=== PATIENT | female | born 1995 | race Caucasian/White ===

== ENCOUNTER 2017-10-17 14:16 | Emergency (ER) | payer OTHER ==
[2017-10-17 17:51] LABS: ADD MAN DIFF? NO
[2017-10-17 17:56] LABS: BASOPHILS % 0.3 % (0.0-2.0); EOSINOPHILS % 0.3 % (0.0-7.0); HEMOGLOBIN 14.6 g/dl (12.0-16.0); LYMPHOCYTES # 2.8 10^3/ul (0.8-2.9); LYMPHOCYTES % 31.3 % (15.0-51.0); MEAN CORPUSCULAR HEMOGLOBIN 29.3 pg (29.0-33.0); MEAN CORPUSCULAR VOLUME 86.2 fl (82.0-101.0); MEAN PLATELET VOLUME 9.6 fl (7.4-10.4); MONOCYTE # 0.6 10^3/ul (0.3-0.9); MONOCYTES % 6.5 % (0.0-11.0); NEUTROPHIL # 5.4 10^3/ul (1.6-7.5); NEUTROPHILS % 61.3 % (39.0-77.0); PLATELET COUNT 379 10^3/UL (140-415); RED BLOOD COUNT 4.99 10^6/ul (4.20-5.40); RED CELL DISTRIBUTION WIDTH 13.1 % (11.5-14.5)
[2017-10-17 17:56] LABS: WHITE BLOOD COUNT 8.9 10^3/ul (4.8-10.8)
[2017-10-17] MEDS: METOCLOPRAMIDE 10 MG INJ IV (18:05)
[2017-10-17] MEDS: DIPHENHYDRAMINE 50 MG INJ IV (18:05)
[2017-10-17] MEDS: SOD CHLORIDE 0.9% 1,000 ML IV (18:06)
[2017-10-17 18:09] LABS: INR 0.95; PROTIME 12.8 Sec (11.9-14.9)
[2017-10-17 18:10] LABS: PARTIAL THROMBOPLASTIN TIME 30.1 Sec (25.0-35.0)
[2017-10-17 19:07] LABS: ADD UMIC YES; UR ASCORBIC ACID NEGATIVE (NEGATIVE); UR BILIRUBIN (Dip) NEGATIVE (NEGATIVE); UR BLOOD (Dip) 1+ mg/dL (NEGATIVE); UR CLARITY CLEAR (CLEAR); UR COLOR STRAW (YELLOW); UR GLUCOSE (Dip) NEGATIVE (NEGATIVE); UR KETONES (Dip) NEGATIVE (NEGATIVE); UR LEUKOCYTE ESTERASE (Dip) NEGATIVE Leu/ul (NEGATIVE); UR NITRITE (Dip) NEGATIVE (NEGATIVE); UR RBC 1 /HPF (0-5); UR SPECIFIC GRAVITY (Dip) 1.005 (1.003-1.030); UR TOTAL PROTEIN (Dip) NEGATIVE (NEGATIVE); UR UROBILINOGEN (Dip) NEGATIVE (NEGATIVE); UR WBC 0 /HPF (0-5)
== END 2017-10-17 20:13 | disposition home or self-care (01) ==
LOC: FTE 14:16
DX: H53.2 Diplopia (principal)
CPT/HCPCS: 36415; 70450; 81001; 84703; 85025; 85610; 85730; 96374; 96375; 99285-25

== ENCOUNTER 2017-10-20 10:24 | Inpatient (IN) | payer OTHER ==
[2017-10-20] MEDS ORDERED: ONDANSETRON 4 MG INJ IV (12:30)
[2017-10-20 12:33] LABS: ADD MAN DIFF? NO
[2017-10-20] MEDS: SOD CHLORIDE 0.9% 1,000 ML IV (12:34)
[2017-10-20 12:35] LABS: BASOPHILS % 0.2 % (0.0-2.0); HEMATOCRIT 41.3 % (37.0-47.0); HEMOGLOBIN 14.2 g/dl (12.0-16.0); LYMPHOCYTES # 1.7 10^3/ul (0.8-2.9); LYMPHOCYTES % 17.5 % (15.0-51.0); MEAN CORPUSCULAR HEMOGLOBIN 29.3 pg (29.0-33.0); MEAN CORPUSCULAR HGB CONC 34.4 g/dl (32.0-37.0); MEAN CORPUSCULAR VOLUME 85.2 fl (82.0-101.0); MEAN PLATELET VOLUME 9.3 fl (7.4-10.4); MONOCYTE # 0.4 10^3/ul (0.3-0.9); NEUTROPHIL # 7.5 10^3/ul (1.6-7.5); PLATELET COUNT 366 10^3/UL (140-415); RED BLOOD COUNT 4.85 10^6/ul (4.20-5.40); RED CELL DISTRIBUTION WIDTH 12.9 % (11.5-14.5)
[2017-10-20 12:35] LABS: WHITE BLOOD COUNT 9.6 10^3/ul (4.8-10.8)
[2017-10-20 12:36] LABS: ADD UMIC NO; UR ASCORBIC ACID NEGATIVE (NEGATIVE); UR BILIRUBIN (Dip) NEGATIVE (NEGATIVE); UR BLOOD (Dip) NEGATIVE (NEGATIVE); UR CLARITY CLEAR (CLEAR); UR COLOR COLORLESS (YELLOW); UR GLUCOSE (Dip) NEGATIVE (NEGATIVE); UR KETONES (Dip) NEGATIVE (NEGATIVE); UR LEUKOCYTE ESTERASE (Dip) NEGATIVE Leu/ul (NEGATIVE); UR NITRITE (Dip) NEGATIVE (NEGATIVE); UR SPECIFIC GRAVITY (Dip) 1.003 (1.003-1.030); UR TOTAL PROTEIN (Dip) NEGATIVE (NEGATIVE); UR UROBILINOGEN (Dip) NEGATIVE (NEGATIVE)
[2017-10-20 12:53] LABS: HEMOGLOBIN A1C 5.2 % (0-5.9)
[2017-10-20 12:53] LABS: ANION GAP 15 (8-16); BLOOD UREA NITROGEN 7 mg/dl (7-20); CALCIUM 9.6 mg/dl (8.4-10.2); CARBON DIOXIDE 26 mmol/L (21-31); CHLORIDE 106 mmol/L (97-110); CREATININE 0.69 mg/dl (0.44-1.00); GLUCOSE 107 mg/dl (70-220); POTASSIUM 4.5 mmol/L (3.5-5.1); SODIUM 142 mmol/L (135-144)
[2017-10-20 12:58] LABS: AMPHETAMINE/METHAMPHETAMINE Negative (NEGATIVE); BARBITURATES Negative (NEGATIVE); BENZODIAZEPINES Negative (NEGATIVE); CANNABINOIDS Negative (NEGATIVE); COCAINE Negative (NEGATIVE); OPIATES Negative (NEGATIVE)
[2017-10-20] MEDS ORDERED: hydrALAzine 20 MG INJ IV (13:00)
[2017-10-20 13:05] LABS: INR 0.93; PROTIME 12.5 Sec (11.9-14.9)
[2017-10-20 13:06] LABS: PARTIAL THROMBOPLASTIN TIME 28.1 Sec (25.0-35.0)
[2017-10-20 13:11] LABS: TROPONIN-I < 0.012 ng/ml (0.00-0.12)
[2017-10-20] MEDS: METHYLPRED. NA SUCC 1,000 MG in DEXTROSE 5% 50 ML IVPB (13:26)
[2017-10-20] MEDS: ACETAMINOPHEN 325 MG TAB PO (14:05)
[2017-10-20] MEDS: PANTOPRAZOLE 40 MG INJ IV (18:26)
[2017-10-20] MEDS ORDERED: INFLUENZA VIRUS VACCINE 0.5 ML (DISPENSING) IM* (19:00)
[2017-10-21 12:02] LABS: ADD MAN DIFF? NO
[2017-10-21 12:11] LABS: WHITE BLOOD COUNT 14.7 10^3/ul (4.8-10.8)
[2017-10-21 12:11] LABS: BASOPHILS % 0.1 % (0.0-2.0); HEMATOCRIT 39.3 % (37.0-47.0); HEMOGLOBIN 13.5 g/dl (12.0-16.0); LYMPHOCYTES # 1.6 10^3/ul (0.8-2.9); LYMPHOCYTES % 10.8 % (15.0-51.0); MEAN CORPUSCULAR HEMOGLOBIN 29.4 pg (29.0-33.0); MEAN CORPUSCULAR HGB CONC 34.4 g/dl (32.0-37.0); MEAN CORPUSCULAR VOLUME 85.6 fl (82.0-101.0); MEAN PLATELET VOLUME 9.6 fl (7.4-10.4); MONOCYTE # 0.7 10^3/ul (0.3-0.9); MONOCYTES % 4.4 % (0.0-11.0); NEUTROPHIL # 12.4 10^3/ul (1.6-7.5); NEUTROPHILS % 84.2 % (39.0-77.0); PLATELET COUNT 387 10^3/UL (140-415); RED BLOOD COUNT 4.59 10^6/ul (4.20-5.40); RED CELL DISTRIBUTION WIDTH 13.2 % (11.5-14.5)
[2017-10-21 12:35] LABS: MAGNESIUM 2.1 mg/dl (1.7-2.5)
[2017-10-21 12:35] LABS: PHOSPHORUS 2.9 mg/dl (2.5-4.9)
[2017-10-21 12:36] LABS: ANION GAP 18 (8-16); BLOOD UREA NITROGEN 11 mg/dl (7-20); CALCIUM 9.8 mg/dl (8.4-10.2); CARBON DIOXIDE 24 mmol/L (21-31); CHLORIDE 107 mmol/L (97-110); CREATININE 0.61 mg/dl (0.44-1.00); GLUCOSE 108 mg/dl (70-220); POTASSIUM 4.6 mmol/L (3.5-5.1); SODIUM 144 mmol/L (135-144)
[2017-10-21 12:40] LABS: HEMOGLOBIN A1C 5.2 % (0-5.9)
[2017-10-21 13:50] LABS: CHOLESTEROL 186 mg/dl (100-200)
[2017-10-21 13:50] LABS: CHOL/HDL RATIO 4.6 RATIO; HDL CHOLESTEROL 40 mg/dl (33-83); LDL CHOLESTEROL,CALCULATED 128 mg/dl; TRIGLYCERIDES 88 mg/dl (0-149)
[2017-10-21] MEDS ORDERED: MAGNESIUM HYDROXIDE 30ML CUP PO (14:00)
[2017-10-21] MEDS ORDERED: HYDROCODONE/APAP (5/325) TAB PO (14:00)
[2017-10-21] MEDS ORDERED: BISACODYL (EC) 5 MG TAB PO (14:00)
[2017-10-21] MEDS ORDERED: DOCUSATE SODIUM 100 MG CAP PO (14:00)
[2017-10-21] MEDS ORDERED: morphine 2 MG INJ IV (14:00)
[2017-10-21] MEDS ORDERED: NACL 0.9% 3 ML SYG IV (14:00)
[2017-10-21] MEDS ORDERED: DEXTROSE 50% 50 ML SYRINGE IV ×2 (22:00)
[2017-10-21] MEDS ORDERED: GLUCAGON 1 MG INJ IM (22:00)
[2017-10-21] MEDS ORDERED: GLUCOSE GEL 15 GRAM TUBE BUCCAL (22:00)
[2017-10-21] MEDS ORDERED: GLUCOSE GEL 15 GRAM TUBE PO ×2 (22:00)
[2017-10-22 05:56] LABS: ADD MAN DIFF? NO
[2017-10-22 06:02] LABS: WHITE BLOOD COUNT 11.7 10^3/ul (4.8-10.8)
[2017-10-22 06:02] LABS: BASOPHILS % 0.2 % (0.0-2.0); EOSINOPHILS % 0.1 % (0.0-7.0); HEMATOCRIT 38.3 % (37.0-47.0); HEMOGLOBIN 13.3 g/dl (12.0-16.0); LYMPHOCYTES # 3.6 10^3/ul (0.8-2.9); MEAN CORPUSCULAR HEMOGLOBIN 29.8 pg (29.0-33.0); MEAN CORPUSCULAR HGB CONC 34.7 g/dl (32.0-37.0); MEAN CORPUSCULAR VOLUME 85.7 fl (82.0-101.0); MEAN PLATELET VOLUME 9.8 fl (7.4-10.4); MONOCYTE # 0.7 10^3/ul (0.3-0.9); MONOCYTES % 5.7 % (0.0-11.0); NEUTROPHIL # 7.3 10^3/ul (1.6-7.5); NEUTROPHILS % 62.7 % (39.0-77.0); PLATELET COUNT 343 10^3/UL (140-415); RED BLOOD COUNT 4.47 10^6/ul (4.20-5.40); RED CELL DISTRIBUTION WIDTH 13.2 % (11.5-14.5)
[2017-10-22 06:16] LABS: INR 0.97
[2017-10-22 06:36] LABS: ALANINE AMINOTRANSFERASE 27 IU/L (13-69); ALBUMIN 4.1 g/dl (3.3-4.9); ALBUMIN/GLOBULIN RATIO 1.07; ALKALINE PHOSPHATASE 75 IU/L (42-121); ANION GAP 13 (8-16); ASPARTATE AMINO TRANSFERASE 19 IU/L (15-46); BLOOD UREA NITROGEN 14 mg/dl (7-20); CALCIUM 9.3 mg/dl (8.4-10.2); CARBON DIOXIDE 26 mmol/L (21-31); CHLORIDE 105 mmol/L (97-110); CREATININE 0.73 mg/dl (0.44-1.00); GLUCOSE 113 mg/dl (70-220); PHOSPHORUS 3.4 mg/dl (2.5-4.9); POTASSIUM 3.9 mmol/L (3.5-5.1); SODIUM 140 mmol/L (135-144); TOTAL PROTEIN 7.9 g/dl (6.1-8.1)
[2017-10-22 07:37] LABS: FOLATE 7.1 ng/ml (2.8-20.0)
[2017-10-22 07:44] LABS: HEMOGLOBIN A1C 5.2 % (0-5.9)
[2017-10-22] MEDS: INSULIN ASPART [NOVOLOG] 3 ML PEN SC ×4 (08:00→20:33)
[2017-10-22] MEDS: METHYLPRED. NA SUCC 1,000 MG in DEXTROSE 5% 50 ML IVPB (08:13)
[2017-10-22] MEDS: FAMOTIDINE 20 MG TAB PO (08:15)
[2017-10-22] MEDS: ENOXAPARIN 30 MG/0.3 ML SYG SC (08:29)
[2017-10-22] MEDS: LIDOCAINE 1% (MDV) 20 ML INJ ×3 (13:58→14:57)
[2017-10-22] MEDS: ACETAMINOPHEN 325 MG TAB PO (16:04)
[2017-10-22 16:45] LABS: RAPID PLASMA REAGIN NONREACTIVE (NR)
[2017-10-22 17:17] LABS: GLUCOSE,CSF 61 mg/dl (50-80)
[2017-10-22 17:17] LABS: TOTAL PROTEIN,CSF 31 mg/dl (12-60)
[2017-10-22 17:48] LABS: CSF RBC 0 /uL (0-0); CSF WBC 4 /cmm (0-10)
[2017-10-22 18:51] LABS: CSF COLOR COLORLESS
[2017-10-22 18:51] LABS: CSF CLARITY CLEAR
[2017-10-22 18:52] LABS: CSF VOLUME 8.6 ml; CSF#TUBE COUNT TUBE#1; CSF#TUBES REC'D 4
[2017-10-23 06:03] LABS: ADD MAN DIFF? NO
[2017-10-23 06:09] LABS: WHITE BLOOD COUNT 15.6 10^3/ul (4.8-10.8)
[2017-10-23 06:09] LABS: BASOPHILS % 0.1 % (0.0-2.0); HEMATOCRIT 39.3 % (37.0-47.0); HEMOGLOBIN 13.6 g/dl (12.0-16.0); LYMPHOCYTES # 1.9 10^3/ul (0.8-2.9); LYMPHOCYTES % 12.4 % (15.0-51.0); MEAN CORPUSCULAR HEMOGLOBIN 29.7 pg (29.0-33.0); MEAN CORPUSCULAR HGB CONC 34.6 g/dl (32.0-37.0); MEAN CORPUSCULAR VOLUME 85.8 fl (82.0-101.0); MEAN PLATELET VOLUME 9.7 fl (7.4-10.4); MONOCYTE # 0.8 10^3/ul (0.3-0.9); MONOCYTES % 5.1 % (0.0-11.0); NEUTROPHIL # 12.8 10^3/ul (1.6-7.5); PLATELET COUNT 380 10^3/UL (140-415); RED BLOOD COUNT 4.58 10^6/ul (4.20-5.40); RED CELL DISTRIBUTION WIDTH 13.1 % (11.5-14.5)
[2017-10-23 07:20] LABS: ANION GAP 16 (8-16); BLOOD UREA NITROGEN 11 mg/dl (7-20); CALCIUM 9.1 mg/dl (8.4-10.2); CARBON DIOXIDE 24 mmol/L (21-31); CHLORIDE 106 mmol/L (97-110); CREATININE 0.58 mg/dl (0.44-1.00); GLUCOSE 126 mg/dl (70-220); POTASSIUM 4.1 mmol/L (3.5-5.1); SODIUM 142 mmol/L (135-144)
[2017-10-23] MEDS: INSULIN ASPART [NOVOLOG] 3 ML PEN SC ×4 (08:00→21:00)
[2017-10-23] MEDS: FAMOTIDINE 20 MG TAB PO (08:33)
[2017-10-23] MEDS: ENOXAPARIN 30 MG/0.3 ML SYG SC ×2 (08:34→08:40)
[2017-10-23] MEDS: METHYLPRED. NA SUCC 1,000 MG in DEXTROSE 5% 50 ML IVPB (08:34)
[2017-10-24] MEDS: INSULIN ASPART [NOVOLOG] 3 ML PEN SC ×4 (08:00→20:45)
[2017-10-24] MEDS: FAMOTIDINE 20 MG TAB PO (08:31)
[2017-10-24] MEDS: ENOXAPARIN 30 MG/0.3 ML SYG SC (08:33)
[2017-10-24] MEDS: METHYLPRED. NA SUCC 1,000 MG in DEXTROSE 5% 50 ML IVPB (17:35)
[2017-10-24] MEDS: ONDANSETRON 4 MG INJ IV (19:32)
[2017-10-25 05:50] LABS: ADD MAN DIFF? NO
[2017-10-25 05:58] LABS: BASOPHILS % 0.1 % (0.0-2.0); HEMATOCRIT 40.3 % (37.0-47.0); HEMOGLOBIN 13.7 g/dl (12.0-16.0); LYMPHOCYTES # 1.8 10^3/ul (0.8-2.9); LYMPHOCYTES % 15.2 % (15.0-51.0); MEAN CORPUSCULAR HEMOGLOBIN 29.3 pg (29.0-33.0); MEAN CORPUSCULAR VOLUME 86.1 fl (82.0-101.0); MEAN PLATELET VOLUME 9.8 fl (7.4-10.4); MONOCYTE # 0.1 10^3/ul (0.3-0.9); MONOCYTES % 0.7 % (0.0-11.0); NEUTROPHILS % 83.2 % (39.0-77.0); PLATELET COUNT 372 10^3/UL (140-415); RED BLOOD COUNT 4.68 10^6/ul (4.20-5.40); RED CELL DISTRIBUTION WIDTH 12.9 % (11.5-14.5)
[2017-10-25 06:12] LABS: ALANINE AMINOTRANSFERASE 30 IU/L (13-69); ALBUMIN 4.1 g/dl (3.3-4.9); ALKALINE PHOSPHATASE 70 IU/L (42-121); ANION GAP 15 (8-16); ASPARTATE AMINO TRANSFERASE 11 IU/L (15-46); BLOOD UREA NITROGEN 12 mg/dl (7-20); CALCIUM 8.9 mg/dl (8.4-10.2); CARBON DIOXIDE 26 mmol/L (21-31); CHLORIDE 104 mmol/L (97-110); GLUCOSE 139 mg/dl (70-220); POTASSIUM 4.5 mmol/L (3.5-5.1); SODIUM 140 mmol/L (135-144)
[2017-10-25 06:15] LABS: BILIRUBIN,INDIRECT 0.2 mg/dl (0-1.1); BILIRUBIN,TOTAL 0.2 mg/dl (0.2-1.3); TOTAL PROTEIN 7.3 g/dl (6.1-8.1)
[2017-10-25 06:17] LABS: ALBUMIN/GLOBULIN RATIO 1.28
[2017-10-25 06:28] LABS: MAGNESIUM 2.1 mg/dl (1.7-2.5)
[2017-10-25 06:28] LABS: PHOSPHORUS 5.1 mg/dl (2.5-4.9)
[2017-10-25] MEDS: INSULIN ASPART [NOVOLOG] 3 ML PEN SC ×4 (07:56→20:54)
[2017-10-25] MEDS: ENOXAPARIN 30 MG/0.3 ML SYG SC (08:37)
[2017-10-25] MEDS: FAMOTIDINE 20 MG TAB PO (08:37)
[2017-10-25] MEDS: METHYLPRED. NA SUCC 1,000 MG in DEXTROSE 5% 50 ML IVPB (17:14)
[2017-10-25] MEDS: ACETAMINOPHEN 325 MG TAB PO (20:54)
[2017-10-26] MEDS: INSULIN ASPART [NOVOLOG] 3 ML PEN SC ×3 (07:59→16:53)
[2017-10-26] MEDS: FAMOTIDINE 20 MG TAB PO (09:07)
[2017-10-26] MEDS: ENOXAPARIN 30 MG/0.3 ML SYG SC (09:08)
[2017-10-26] MEDS: ACETAMINOPHEN 325 MG TAB PO (15:18)
[2017-10-26] MEDS: METHYLPRED. NA SUCC 1,000 MG in DEXTROSE 5% 50 ML IVPB (16:47)
== END 2017-10-26 18:25 | disposition home health service (06) | DRG 60 ==
LOC: PP2 10-24 20:27 → E/R 10:24 → PP2 12:15
PROC: 009U3ZX Drainage of Spinal Canal, Percutaneous Approach, Diagnostic (ICD-10-PCS; principal; 2017-10-22)
DX: G35 Multiple sclerosis (principal); H49.03 Third [oculomotor] nerve palsy, bilateral; H49.21 Sixth [abducent] nerve palsy, right eye; H51.23 Internuclear ophthalmoplegia, bilateral; H53.2 Diplopia; R13.10 Dysphagia, unspecified; K29.70 Gastritis, unspecified, without bleeding; R03.0 Elevated blood-pressure reading, without diagnosis of hypertension; R51 Headache; R73.9 Hyperglycemia, unspecified; M91.12 Juvenile osteochondrosis of head of femur [Legg-Calve-Perthes], left leg
CPT/HCPCS: 36415; 70544; 70553; 71045; 80048; 80053; 80061; 80307; 81003; 82040; 82042; 82306; 82607; 82746; 82784; 82945; 82962; 83036; 83735; 83873; 83916; 84100; 84157; 84443; 84484; 84703; 85025; 85610; 85730; 86592; 89051; 90686; 92610; 96374; 97110; 97116; 97162; 97530; 99285-25